=== PATIENT | female | born 1985 | race American Indian/Alaskan Native ===

== ENCOUNTER 2017-03-14 16:15 | Emergency (ER) | payer OTHER ==
[2017-03-14 17:51] LABS: Basophils % (Auto) 1.2 % (0.0-1.8); Eosinophils % (Auto) 3.7 % (0.0-4.3); Hematocrit 36.7 % (30.3-42.9); Hemoglobin 11.8 gm/dl (10.1-14.3); Mean Corpuscular HGB Conc 32 % (30-34); Platelet Count 252 K/mm3 (140-440); Red Blood Count 5.36 M/mm3 (3.65-5.03); White Blood Count 4.3 K/mm3 (4.5-11.0)
[2017-03-14 17:56] LABS: Mean Corpuscular Hemoglobin 22 pg (28-32); Mean Corpuscular Volume 68 fl (79-97); Red Cell Distribution Width 21.4 % (13.2-15.2)
[2017-03-14 18:09] LABS: Anion Gap 18 mmol/L; BUN/Creatinine Ratio 22.85; Blood Urea Nitrogen 16 mg/dL (7-17); Calcium 8.9 mg/dL (8.4-10.2); Carbon Dioxide 22 mmol/L (22-30); Chloride 101.7 mmol/L (98-107); Glucose 146 mg/dL (65-100); Potassium 3.5 mmol/L (3.6-5.0); Sodium 138 mmol/L (137-145)
[2017-03-15 00:30] VITALS: BP 151/97
--- NOTE | 2017-03-15 15:43 | ED Elopement Review ---
ED Pt Elopement review - Results review Lab results: Laboratory Tests 03/14/17 03/14/17 03/14/17 17:29 17:29 20:23 WBC 4.3 L RBC 5.36 H Hgb 11.8 Hct 36.7 MCV 68 L MCH 22 L MCHC 32 RDW 21.4 H Plt Count 252 Lymph % (Auto) 24.3 [place] % (Auto) 6.7 Eos % (Auto) 3.7 Baso % (Auto) 1.2 Lymph # 1.1 L [place] # 0.3 Eos # 0.2 Baso # 0.1 Seg Neutrophils % 64.1 Seg Neutrophils # 2.8 Sodium 138 Potassium 3.5 L Chloride 101.7 Carbon Dioxide 22 Anion Gap 18 BUN 16 Creatinine 0.7 Estimated GFR > 60 BUN/Creatinine Ratio 22.85 Glucose 146 H Calcium 8.9 Troponin T < 0.010 < 0.010 03/14/17 23:32 WBC RBC Hgb Hct MCV MCH MCHC RDW Plt Count Lymph % (Auto) [place] % (Auto) Eos % (Auto) Baso % (Auto) Lymph # [place] # Eos # Baso # Seg Neutrophils % Seg Neutrophils # Sodium Potassium Chloride Carbon Dioxide Anion Gap BUN Creatinine Estimated GFR BUN/Creatinine Ratio Glucose Calcium Troponin T < 0.010 - Call Back decision Pt Call Back Decision: No action required
== END 2017-03-15 00:40 | disposition left against medical advice (07) ==
LOC: ED 16:15
DX: R07.9 Chest pain, unspecified (principal); Z53.21 Procedure and treatment not carried out due to patient leaving prior to being seen by health care provider
CPT/HCPCS: 36415; 80048; 84484; 85025; 93005; 93010